=== PATIENT | female | born 1945 | race Caucasian/White ===

== ENCOUNTER 2020-03-04 13:44 | Emergency (ER) | payer MEDICARE, SELFPAY ==
[2020-03-04 14:10] VITALS: BP 120/99; PULSE 83; RESP 18; TEMP 37; O2SAT 99; BMI 28.9
--- NOTE | 2020-03-04 14:17 | XR_ITS ---
EXAMINATION: XR CHEST CLINICAL INFORMATION: Cough COMPARISON: None TECHNIQUE: Frontal view of the chest was obtained. FINDINGS: The patient is rotated to the left. The cardiac and mediastinal contours are normal. The lungs are clear. There is no pleural effusion or pneumothorax. There are degenerative changes of the spine and at the right shoulder joint. XR/XR chest 1V IMPRESSION: No evidence for acute disease in the chest.
--- NOTE | 2020-03-04 14:18 | XR_ITS ---
EXAMINATION: XR WRIST, RIGHT CLINICAL INFORMATION: History of fracture. Not wearing a brace. COMPARISON: None TECHNIQUE: Four views of the right wrist. FINDINGS: The bones are osteopenic. No fracture or dislocation is seen. There is arthritis at the first HALFWAY joint and trapezoid trapezium scaphoid joint. Soft tissues are unremarkable. XR/XR wrist RT min 3V IMPRESSION: Severe osteopenia. Degenerative changes. No fracture seen.
--- NOTE | 2020-03-04 14:38 | ED_ITS ---
HPI - General Adult General Chief complaint: Failure to Thrive Stated complaint: BACK PAIN Time Seen by Provider: 03/04/20 14:15 Source: patient, EMS and old records reviewed Mode of arrival: EMS Limitations: no limitations History of Present Illness HPI narrative: 74 y/o female with history of DM, COPD, CKD, HTN, neck mass, spinal stenosis, right wrist fracture and right proximal humerus fracture s/p fall in July 2019 who presents via EMS from a hotel with concerns of her safety as well as for assessment of her acute on chronic back pain. She was a resident of [facility] from August 21-Feb 23 and then discharged to a hotel. EMS reports she spent one night in the hotel and then went to her condemned home which has no heat and no hot water. She was found today at [facility] and brought into the ER for evaluation. She reported that she has been staying with a friend at night and going to her condemned house only during the daytime. She reports she has been eating and drinking normally. She denies recent falls. Her back pain is acute on chronic due to her spinal stenosis and causes spasms when she walks only. No pain at rest, no radiation, no numbness, no tingling, no incontinence. She denies fever, chill, N/V/D, abd pain, urinary symptoms. Admits to mild dry cough. complaint: back pain Onset (ago): week(s) (1 week it started worsening ) Location: back Radiation: non-radiation Severity: moderate Severity scale (1-10): 6 Quality: aching Pain Consistency: intermittent Relieving factors: immobilization and rest Exacerbating factors: movement Associated symptoms: denies other symptoms Treatments prior to arrival: none Related Data Home Medications Medication Instructions Recorded Confirmed hydrocortisone See Rx Instructions .ROUTE .COMPLEX 03/04/20 03/04/20 metoprolol succinate [Toprol XL] 25 tab PO DAILY 03/04/20 03/04/20 senna See Rx Instructions .ROUTE .COMPLEX 03/04/20 03/04/20 Allergies Allergy/AdvReac Type Severity Reaction Status Date / Time codeine [CODEINE] Allergy Severe HIVES, Unverified 12/12/19 18:28 SWELLING epinephrine [EPINEPHRINE] Allergy Unknown PALPITATION Unverified 12/12/19 18:28 S Review of Systems Review of Systems: Constitutional: No Fever, No Chills ENT/Mouth: No sore throat, No Rhinorrhea, No Swallowing Difficulty Eyes: No Eye Pain, No Swelling, No Redness Cardiovascular: No Chest Pain, No SOB, No Orthopnea, + Edema Respiratory: + Cough, No Sputum, No Wheezing, No dyspnea Gastrointestinal: No Nausea, No Vomiting, No Diarrhea, No abdominal Pain Genitourinary: No Dysuria, No Urinary Frequency, No Hematuria Musculoskeletal: + joint pain, No Myalgias Skin: No Skin Lesions, + rash Neuro: No Weakness, No Numbness, No Dizziness, No Headache Psych: No Anxiety/Panic, No Depression Heme/Lymph: No Bruising, No Lymphadenopathy Endocrine: No Polyuria, No Polydipsia PMFSH Past Medical History Attestation statement: The following information was validated with the patient. Medical History CKD (chronic kidney disease) COPD (chronic obstructive pulmonary disease) Diabetes Fall HTN (hypertension) Spinal stenosis Wrist fracture Social History Social History Smoked in Last 30 Days: No Advance Directives: No Advance Directives Information Provided: Yes Physical Exam Vital Signs: Vital Signs: Last Vital Signs Temp 98.6 F 03/04/20 14:10 Pulse 76 03/04/20 15:26 Resp 11 L 03/04/20 15:26 BP 162/61 H 03/04/20 15:26 Pulse Ox 100 03/04/20 15:26 Body Mass Index 28.9 Appearance: Alert. Oriented X3. No acute distress. Elderly female, mildly kyphotic Eyes: Pupils equal, round and reactive to light. ENT: Pharynx normal. Neck: Neck with large left anterior mobile mass, non-tender, no skin changes. no LAD, Neck supple. CVS: Normal heart rate and rhythm. Pulses normal. Respiratory: No respiratory distress. Breath sounds normal. Abdomen: Soft and nontender. +BS x4 Skin: Skin warm and dry. beefy red rash in bilateral inguinal fold and under bilateral breasts Extremities: + LE edema involving the feet, right wrist tender with mild contracture of hand, tender right upper arm Neuro: Oriented X 3. Non-focal Course Course Course Narrative: 74 y/o female found in unsafe living conditions. Vitals are normal on arrival. Reporting acute/chonic back pain and spasm without known injury. Basic lab workup ordered as well as CXR for dry cough and XR wrist and shoulder - she reports wrist fx in July and she is supposed to be wearing a splint but has not been. Case management is involved - contacted [facility] and [facility] [employer] [facility]. Attempted to contact patient's sister but there was no answer. Will get PT consult once medically cleared. Anticipate STR placement. Neck mass on exam addressed with patient - she states it has been present Reevaluation(s) Reevaluation #1: Records from July admission to [facility] reviewed - she was admitted with multiple traumatic fractures after a fall outside her home and being down for >12 hours. Course was complicated by Takotsubo cardiomyopathy. She had cardiac catheterization that showed mild luminal irregularieis with no non-obstructive or obstructive CAD. Time: 16:52 Reevaluation #2: Lab workup shows CK 655 - tolerating PO and oral liquids are encouraged, tolerating well. No need for IVF at this time. Mild transaminitis with normal bili and alk phos, no abd pain, N/V. XR of wrist and shoulder only showed chronic findings and old trauma. PT has been consulted but was unable to evaluate the patient today. Will plan to continue care in the ER tonight, PT eval and likely placement to STR tomorrow. Will repeat CPK after adequate PO intake to reassess need for IVF. Medical Decision Making Lab Data Result diagrams: 03/04/20 14:59 03/04/20 14:59 Labs: Lab Results 03/04/20 03/04/20 03/04/20 Range/Units 14:54 14:59 14:59 WBC 8.3 (4.8-10.8) X10*3/uL RBC 3.88 L (4.20-5.50) X10*6/uL Hgb 12.2 (12.0-16.0) g/dl Hct 35.4 L (37-47) % MCV 91.2 (80-98) fL MCH 31.4 (27.0-33.0) pg MCHC 34.5 (31.0-35.0) g/dl RDW 13.2 (11.0-16.0) % Plt Count 296 (160-400) X10*3/uL MPV 8.4 L (9.4-12.3) fL Immature Gran % (Auto) 0.2 (0.0-0.4) % Neut % (Auto) 79.9 H (45-73) % Lymph % (Auto) 13.3 L (20-40) % Mchenry % (Auto) 5.6 (2-11) % Eos % (Auto) 0.6 (0-4) % Baso % (Auto) 0.4 (0-2) % Lymph # (Auto) 1.1 L (1.2-4.9) X10*3/uL Mchenry # (Auto) 0.5 (0.1-1.2) X10*3/uL Eos # (Auto) 0.1 (0.0-0.4) X10*3/uL Baso # (Auto) 0.0 (0.0-0.2) X10*3/uL Abs Immat Gran (auto) 0.02 (0.00-0.03) X10*3/uL Absolute Neuts (auto) 6.6 (2.0-8.3) X10*3/uL Absolute Nucleated RBC 0.000 (0.0-0.012) X10*3/uL Nucleated RBC % (auto) 0.0 (0.0-0.2) /100WBC Sodium 137 (135-145) mmol/L Potassium 3.4 (3.3-5.1) mmol/l Chloride 97 (96-108) mmol/L Carbon Dioxide 29 (22-29) mmol/L Anion Gap 14 (12-20) BUN 9 (9-16) mg/dL Creatinine 0.67 (0.5-1.4) mg/dL Estim Creat Clear Calc 71.0 Estimated GFR > 60 Random Glucose 98 (60-115) mg/dL Calcium 8.8 (8.4-10.2) mg/dL Magnesium 1.9 (1.6-2.6) mg/dL Total Bilirubin 0.5 (0.0-1.0) mg/dL Direct Bilirubin 0.3 (0.0-0.5) mg/dL AST 45 H (5-31) U/L ALT 35 H (0-31) U/L Alkaline Phosphatase 90 (39-117) U/L Total Creatine Kinase 655 H (26-140) U/L B-Natriuretic Peptide (<100) pg/mL Total Protein 6.8 (6.5-8.0) g/dL Albumin 4.0 (3.5-5.0) g/dL Urine Color Urine Appearance Urine pH (5.0-8.0) Ur Specific Thornton (1.005-1.025) Urine Protein (NEG-TRACE) MG/DL Urine Glucose (UA) (NEG) MG/DL Urine Ketones (NEG) MG/DL Urine Blood (NEG) Urine Nitrite (NEG) Ur Leukocyte Esterase (NEG) Urine RBC (0) /HPF Urine WBC (0-4) /HPF Ur Squamous Epith Cells /LPF Urine Bacteria /LPF COVID-19 (ELBA) Negative (Negative) COVID-19 Clin Com See Note 03/04/20 03/04/20 Range/Units 14:59 15:47 WBC (4.8-10.8) X10*3/uL RBC (4.20-5.50) X10*6/uL Hgb (12.0-16.0) g/dl Hct (37-47) % MCV (80-98) fL MCH (27.0-33.0) pg MCHC (31.0-35.0) g/dl RDW (11.0-16.0) % Plt Count (160-400) X10*3/uL MPV (9.4-12.3) fL Immature Gran % (Auto) (0.0-0.4) % Neut % (Auto) (45-73) % Lymph % (Auto) (20-40) % Mchenry % (Auto) (2-11) % Eos % (Auto) (0-4) % Baso % (Auto) (0-2) % Lymph # (Auto) (1.2-4.9) X10*3/uL Mchenry # (Auto) (0.1-1.2) X10*3/uL Eos # (Auto) (0.0-0.4) X10*3/uL Baso # (Auto) (0.0-0.2) X10*3/uL Abs Immat Gran (auto) (0.00-0.03) X10*3/uL Absolute Neuts (auto) (2.0-8.3) X10*3/uL Absolute Nucleated RBC (0.0-0.012) X10*3/uL Nucleated RBC % (auto) (0.0-0.2) /100WBC Sodium (135-145) mmol/L Potassium (3.3-5.1) mmol/l Chloride (96-108) mmol/L Carbon Dioxide (22-29) mmol/L Anion Gap (12-20) BUN (9-16) mg/dL Creatinine (0.5-1.4) mg/dL Estim Creat Clear Calc Estimated GFR Random Glucose (60-115) mg/dL Calcium (8.4-10.2) mg/dL Magnesium (1.6-2.6) mg/dL Total Bilirubin (0.0-1.0) mg/dL Direct Bilirubin (0.0-0.5) mg/dL AST (5-31) U/L ALT (0-31) U/L Alkaline Phosphatase (39-117) U/L Total Creatine Kinase (26-140) U/L B-Natriuretic Peptide 197 H (<100) pg/mL Total Protein (6.5-8.0) g/dL Albumin (3.5-5.0) g/dL Urine Color YELLOW Urine Appearance CLEAR Urine pH 5.0 (5.0-8.0) Ur Specific Thornton >= 1.030 H (1.005-1.025) Urine Protein TRACE (NEG-TRACE) MG/DL Urine Glucose (UA) NEG (NEG) MG/DL Urine Ketones 15 (NEG) MG/DL Urine Blood 1+ H (NEG) Urine Nitrite NEG (NEG) Ur Leukocyte Esterase NEG (NEG) Urine RBC 0-2 (0) /HPF Urine WBC 0 (0-4) /HPF Ur Squamous Epith Cells 1+ /LPF Urine Bacteria TRACE /LPF COVID-19 (ELBA) (Negative) COVID-19 Clin Com Discharge Plan Discharge Clinical Impression: Physical deconditioning Back pain Qualifiers: Back pain location: low back pain Chronicity: chronic Back pain laterality: unspecified Sciatica presence: without sciatica Qualified Code(s): M54.5 - Low back pain Prescriptions: No Action hydrocortisone 1 % cream See Rx Instructions .ROUTE .COMPLEX RF: 0 metoprolol succinate [Toprol XL] 25 mg tablet extended release 24 hr 25 tab PO DAILY RF: 0 senna See Rx Instructions .ROUTE .COMPLEX RF: 0
--- NOTE | 2020-03-04 14:40 | XR_ITS ---
EXAMINATION: XR SHOULDER, RIGHT CLINICAL INFORMATION: Pain COMPARISON: None TECHNIQUE: 2 views of the right shoulder. FINDINGS: No acute fracture or dislocation is seen. There is question of old trauma to the right humeral head. There is evidence of severe arthritis at the glenohumeral humeral joint. Glenohumeral alignment is difficult to assess on the limited views. The acromioclavicular joint is unremarkable. Soft tissues are unremarkable. XR/XR shoulder RT min 2V IMPRESSION: Question old trauma to the right humeral head. Severe arthritis. Glenohumeral alignment difficult to assess on the limited views.
[2020-03-04 15:08] LABS: MANUAL DIFF FLAG NO
[2020-03-04 15:10] LABS: Basophils Percent Auto 0.4 % (0-2); Eosinophils Absolute Auto 0.1 X10*3/uL (0.0-0.4); Eosinophils Percent Auto 0.6 % (0-4); Hematocrit 35.4 % (37-47); Hemoglobin 12.2 g/dl (12.0-16.0); Imm Gran Abs Auto 0.02 X10*3/uL (0.00-0.03); Imm Gran Pct Auto 0.2 % (0.0-0.4); Lymphocytes Absolute Auto 1.1 X10*3/uL (1.2-4.9); Lymphocytes Percent Auto 13.3 % (20-40); Mean Corpuscular HGB Conc 34.5 g/dl (31.0-35.0); Mean Corpuscular Hemoglobin 31.4 pg (27.0-33.0); Mean Corpuscular Volume 91.2 fL (80-98); Mean Platelet Volume 8.4 fL (9.4-12.3); Monocytes Absolute Auto 0.5 X10*3/uL (0.1-1.2); Monocytes Percent Auto 5.6 % (2-11); Neutrophils Absolute Auto 6.6 X10*3/uL (2.0-8.3); Neutrophils Percent Auto 79.9 % (45-73); Platelet Count 296 X10*3/uL (160-400); Red Blood Count 3.88 X10*6/uL (4.20-5.50); Red Cell Distribution Width 13.2 % (11.0-16.0); White Blood Count 8.3 X10*3/uL (4.8-10.8)
[2020-03-04 15:13] VITALS: BP 162/61; PULSE 76; RESP 16; O2SAT 100
[2020-03-04 15:23] VITALS: RESP 16
[2020-03-04 15:26] VITALS: BP 162/61; PULSE 76; RESP 11; O2SAT 100
[2020-03-04 15:27] LABS: IDNOW Serial# 9DD0AD1C
[2020-03-04 15:28] LABS: COVID-19 Test Negative (Negative)
[2020-03-04] MEDS: Nystatin Powder 15 GM BOTTLE 1 APPL TOPICAL (15:28)
[2020-03-04] MEDS: Acetaminophen 325 MG TABLET 975 MG PO (15:29)
[2020-03-04 15:38] LABS: Alanine Aminotransferase 35 U/L (0-31); Alkaline Phosphatase 90 U/L (39-117); Anion Gap 14 (12-20); Aspartate Amino Transferase 45 U/L (5-31); Bilirubin Direct 0.3 mg/dL (0.0-0.5); Bilirubin Total 0.5 mg/dL (0.0-1.0); Blood Urea Nitrogen 9 mg/dL (9-16); Calcium 8.8 mg/dL (8.4-10.2); Carbon Dioxide 29 mmol/L (22-29); Chloride 97 mmol/L (96-108); Estimated Glomerular Filt Rate > 60; Glucose Random 98 mg/dL (60-115); Magnesium 1.9 mg/dL (1.6-2.6); Potassium 3.4 mmol/l (3.3-5.1); Sodium 137 mmol/L (135-145); Total Protein 6.8 g/dL (6.5-8.0)
[2020-03-04 15:44] LABS: B Type Natriuretic Peptide 197 pg/mL (<100)
[2020-03-04 15:54] LABS: Glucose Urine UA NEG (NEG); Leukocyte Esterase Urine NEG (NEG); Nitrite Urine NEG (NEG); Specific Gravity - Urine >= 1.030 (1.005-1.025); Urine Blood 1+ (NEG); Urine Ketones 15 MG/DL (NEG); Urine Protein TRACE MG/DL (NEG-TRACE)
[2020-03-04 15:56] LABS: Appearance Urine CLEAR; Color Urine YELLOW
--- NOTE | 2020-03-04 16:03 | PC.NURSE ---
Pt awaiting rehab placement, transferred into hospital bed. Currently resting quietly.
[2020-03-04 16:06] LABS: Bacteria Urine TRACE /LPF; RBC Urine 0-2 /HPF (0); Squamous Epithelial Cell Urine 1+ /LPF; WBC Urine 0 /HPF (0-4)
--- NOTE | 2020-03-04 16:17 | MHC.CM.ED ---
Received case management consult from Marleny MENDOZA. Patient was found by EMS at [facility]. She has been staying at her home in [place]. It is condemned. She was at [facility]. She was discharged to [facility] on 08/21. She was discharged to a motel on 02/23. She spent 1 night there and then returned to her condemned home. She has been staying there. There is no electricity or water. Patient is active with Elder Protective Services. Yolanda Triplett is her manager case management and can be reached at [phone]. She has been working with patient to get her to agree to stay in a motel. ER work up is pending, including a physical therapy eval. Anticipate patient will remain in ER overnight. Continue to monitor for d/c needs.
[2020-03-04 17:48] VITALS: BP 162/61; PULSE 76; RESP 16; TEMP 36.8; O2SAT 100
[2020-03-04 19:32] VITALS: BP 129/46; PULSE 82; RESP 16; O2SAT 97
--- NOTE | 2020-03-04 19:43 | PC.NURSE ---
Report taken from isael De Leon RN resuming care. Pt found sitting upright in bed, CAOx4, speaking full sentences, reporting 9/10 chronic pain to right shoulder. VSS. Pt aware of plan for labs @ 2100 and pending bed search for a rehab. Call rodriguez within reach, continue to monitor.
[2020-03-04] MEDS: Sennosides 8.6 MG TABLET PO (20:59)
--- NOTE | 2020-03-04 20:59 | PC.NURSE ---
Pt medicated with Senna. thermal technician at bedside for repeat labs. Pt repositioned in bed into POC. Continue to monitor.
[2020-03-05] VITALS (10 sets, daily range): BP systolic 123–163; BP diastolic 44–77; PULSE 70–87; RESP 13–20; TEMP 36.5–37.7; O2SAT 95–98
--- NOTE | 2020-03-05 04:52 | PC.NURSE ---
PT RESTING IN BED SKIN PWD RESPIRATIONS EVEN UNLABORED, AWAITING CASE MANAGEMENT PLACEMENT. AWARE OF PLAN OF CARE.
--- NOTE | 2020-03-05 11:19 | MHC.CM.ED ---
Met with patient. PT recommend SNF with Physical therapy. PT states pt unable to live alone due to safety concerns and inability to care for herself. Pt agreeable to placement. Requested [facility] in [facility], but unfortunately they do not have any beds. 17 referrals placed locally at pt request. Anticipate difficulty with placement due to pt social situation. Pt tells CM she has little to no contact with family. Will continue to monitor for D/C planning
[2020-03-05] MEDS: Metoprolol Succinate ER 25 MG TAB.ER.24H PO (11:56)
--- NOTE | 2020-03-05 11:59 | PC.NURSE ---
Patient alert &oriented, cafeteria monitor nsr 90s, vss, pt medicated per order, will continue to monitor
--- NOTE | 2020-03-05 13:54 | MHC.CM.ED ---
Waiting for SNF. 17 referrals placed. 13 declined. Did reach out again to remaining to see if they can offer a bed. Pt aware. Will continue to follow for d/c needs
--- NOTE | 2020-03-05 14:42 | MHC.CM.ED ---
Initial 17 referrals cannot offer bed or insurance not accepted. Additional 18 referrals placed within 40 mile radius
[2020-03-05] MEDS: Ibuprofen 600 MG TABLET PO (16:55)
--- NOTE | 2020-03-05 16:57 | PC.NURSE ---
patient medicated for pain per order
--- NOTE | 2020-03-05 19:00 | PC.NURSE ---
Pt resting in hospital bed requesting her senna. pt alert, respiraitons easy, n/l, skin w/d. Pt awaiting for case mgt in am.
--- NOTE | 2020-03-05 19:11 | PC.NURSE ---
PATIENT WAS GIVEN A BED BATH BY THIS PCT .
[2020-03-05] MEDS: Sennosides 8.6 MG TABLET PO (20:52)
--- NOTE | 2020-03-05 20:55 | PC.NURSE ---
PT MEDICATED PER EMAR. PT RESTING IN BED SPEAKING POLITICS WITH STAFF. PT DENIES ANY COMPLAINTS AT THIS TIME. WILL CONTINUE TO MONITOR PT.
--- NOTE | 2020-03-05 23:15 | PC.NURSE ---
REPORT TAKEN FROM YEVGENIY HOWARD, FIRST CONTACT WITH PT SITTING UP IN BED SKIN PWD RESPIRATIONS EVEN UNLABORED, VSS. PLEASANTLY CONVERSING WITH RN, AWAITING CASE MANAGEMENT PLACEMENT IN AM AWARE OF PLAN OF CARE.
[2020-03-06 02:00] VITALS: RESP 16
--- NOTE | 2020-03-06 02:26 | PC.NURSE ---
PT CALLED FOR BEDPAN, URINATED WITHOUT DIFFICULTY. PO FLUIDS GIVEN AND PT REPOSITIONED FOR COMFORT. WILL CONTINUE TO MONITOR.
[2020-03-06 04:00] VITALS: PULSE 78; RESP 16; O2SAT 98
--- NOTE | 2020-03-06 08:41 | MHC.CM.ED ---
Awaiting auth and bed availability from [facility] in [place]. Contacted Roxi Escobar via [email or web address] regarding pt social situation and broadcasting 30 referrals without bed acceptance. ? due to insurance and social issues. ? if elder emergency waiver is appropriate to help with placement. Will continue to follow for d/c needs
[2020-03-06 08:59] VITALS: BP 156/56; PULSE 83
[2020-03-06] MEDS: Metoprolol Succinate ER 25 MG TAB.ER.24H PO (08:59)
[2020-03-06 09:01] VITALS: BP 156/56; PULSE 83; RESP 18; O2SAT 97
--- NOTE | 2020-03-06 09:55 | MHC.CM.ED ---
[facility]- no bed and insurance is OON. 30 no referrals. Awaiting Roxi Escobar assistance. Will follow for d/c plans
--- NOTE | 2020-03-06 10:15 | MHC.CM.ED ---
40 referrals within 40 miles responded either no bed or insurance OON. Another 47 referrals sent within 100 [address] in state sent. Will monitor for d/c plans
[2020-03-06] MEDS: Ibuprofen 600 MG TABLET PO ×2 (11:07→19:08)
[2020-03-06] MEDS: Acetaminophen 325 MG TABLET 975 MG PO (11:07)
--- NOTE | 2020-03-06 13:28 | MHC.CM.ED ---
[facility] has expressed interest in pt and has requested PSI form (fax- [phone]). Email sent to Roxi Escobar regarding this request. 82 referrals were placed and at this point, only [facility] has shown any interest. Will continue to follow for d/c needs
--- NOTE | 2020-03-06 15:29 | MHC.CM.ED ---
Pt agreeable to meeting with Roxi Escobar regarding frail elder waiver to obtain [facility] so she has the ability to go to a SNF. Roxi Escobar aware. [facility] interested and requested PSI form, made out to [facility]. fAX- [phone]. Roxi made aware by email. Will monitor for d/c needs
--- NOTE | 2020-03-06 16:37 | MHC.CM.ED ---
Roxi Escobar met with pt and is completing frail elder waiver. Pt signed. Roxi will send PSI. Will monitor for d/c needs. Received notice from [facility] that pt left AMA.
[2020-03-06 21:16] VITALS: BP 177/66; PULSE 77; RESP 14; TEMP 36.9; O2SAT 97
[2020-03-06 22:00] VITALS: BP 168/70; PULSE 71; RESP 14; TEMP 36.7; O2SAT 97
[2020-03-06] MEDS: Sennosides 8.6 MG TABLET PO (22:46)
[2020-03-07] MEDS: Ibuprofen 400 MG TABLET PO (04:33)
[2020-03-07 04:34] VITALS: BP 158/66; PULSE 77; RESP 12; O2SAT 98
[2020-03-07 06:00] VITALS: BP 127/77; PULSE 79; RESP 16; O2SAT 98
[2020-03-07 08:38] VITALS: BP 162/78; PULSE 94
[2020-03-07] MEDS: Metoprolol Succinate ER 25 MG TAB.ER.24H PO (08:38)
[2020-03-07 14:46] VITALS: BP 148/53; PULSE 98; RESP 18
--- NOTE | 2020-03-07 14:46 | PC.NURSE ---
patient help to commode, had large BM. This nurse spoke with case management, seems as though placement will not happen until Monday due to an elderly waiver which needs to be completed. patient in no apparent distress, calm. vitals updated.
[2020-03-07] MEDS: Acetaminophen 325 MG TABLET 650 MG PO (15:21)
[2020-03-07 16:43] VITALS: BP 140/52; PULSE 82; RESP 16
[2020-03-07 18:54] VITALS: BP 150/65; PULSE 89; RESP 16; O2SAT 97
[2020-03-07] MEDS: Sennosides 8.6 MG TABLET PO (22:13)
[2020-03-08] VITALS (10 sets, daily range): BP systolic 122–143; BP diastolic 51–66; PULSE 77–97; RESP 15–20; TEMP 36.4–37.1; O2SAT 96–98
[2020-03-08] MEDS: Ibuprofen 400 MG TABLET PO ×2 (05:01→10:34)
[2020-03-08] MEDS: Metoprolol Succinate ER 25 MG TAB.ER.24H PO (09:07)
--- NOTE | 2020-03-08 10:46 | PC.NURSE ---
Pt was encouraged to get oob to recliner at bedside. She declined getting up at this time. This RN encouraged pt to try and get up for lunch. Recliner remains at bedside will reattempt. Dr Rosas informed regarding pt's c/o right shoulder and right elbow pain. Orders provided, and pt medicated per emar.
--- NOTE | 2020-03-08 11:54 | PC.NURSE ---
Pt has voided multiple times on the bedpan. She continues to decline getting oob for her adls. Will re-approach prior to lunch.
[2020-03-08] MEDS: traMADoL HCL 50 MG TABLET 25 MG PO (13:15)
--- NOTE | 2020-03-08 15:00 | PC.NURSE ---
Pt oob for lunch, and remained up for 2 hrs. She is currently back in bed. Continues to await snf placement.
[2020-03-08] MEDS: Sennosides 8.6 MG TABLET PO (23:46)
[2020-03-08] MEDS: traMADoL HCL 50 MG TABLET PO (23:46)
--- NOTE | 2020-03-08 23:57 | PC.NURSE ---
LINENS CHANGED. REPOSITIONED IN BED. CONTINUES TO OBSESS OVER LABS THAT SHE HAD DRAWN AND WHY BLOOD WAS REMOVED FROM HER.
[2020-03-09 10:02] VITALS: BP 173/71; PULSE 80
[2020-03-09] MEDS: Metoprolol Succinate ER 25 MG TAB.ER.24H PO (10:02)
[2020-03-09] MEDS: traMADoL HCL 50 MG TABLET 25 MG PO (10:25)
[2020-03-09 11:27] VITALS: BP 146/62; PULSE 78; RESP 18; TEMP 36.7; O2SAT 97
--- NOTE | 2020-03-09 11:28 | PC.NURSE ---
patient a&ox3, oob to commode with assist then to chair, vss, pt awaiting placement, will continue to monitor.
--- NOTE | 2020-03-09 15:04 | MHC.CM.ED ---
Pt continues to board in ED pending Frail Elder Waiver. [facility] is following. Yolanda from elder protective services called. Tells CM that pt does own her condemned home, but owes back taxes.
[2020-03-09] MEDS: traMADoL HCL 50 MG TABLET PO (18:34)
--- NOTE | 2020-03-09 19:47 | PC.NURSE ---
PT UP TO COMMODE WITH ASSISTENCE. PT'S BED CHG WITH CLEAN LINENS APPLIED TO BED. PT RETURNED TO BED GIVEN MIGUELINA RODRICK TO DRINK. PT DENIES ANY COMPLAINTS AT THIS TIME. WILL CONTINUE TO MONITOR PT.
--- NOTE | 2020-03-09 22:51 | PC.NURSE ---
PT RESTING IN STRETCHER MANAGER EDUCATION PATEL OFTEN TO PULL UP BLANKETS, MOVE AROUND THE TABLE OR ASSIST PT TO COMMODE. WILL CONTINUE TO MONITOR PT.
[2020-03-10 00:15] VITALS: BP 158/73; PULSE 79; RESP 18; TEMP 37; O2SAT 97
[2020-03-10] MEDS: Acetaminophen 325 MG TABLET 650 MG PO ×2 (00:28→22:26)
--- NOTE | 2020-03-10 02:29 | PC.NURSE ---
PATIENT USED BEDPAN. SAT UP AND NEEDED MIGUELINA RODRICK HANDED TO HER IN ORDER TO TAKE A SIP. REPOSITIONED TO LEFT SIDE PER PATIENT REQUEST FOR COMFORT.
[2020-03-10] MEDS: traMADoL HCL 50 MG TABLET PO (04:21)
--- NOTE | 2020-03-10 04:25 | PC.NURSE ---
MEDICATED CHARTED FOR SHOULDER AND HIP JOINT PAIN. PATIENT REPOSITIONED TO RIGHT SIDE REQUESTED BY PATIENT.
[2020-03-10 06:11] VITALS: BP 140/60; PULSE 69; RESP 16; TEMP 36.6; O2SAT 96
--- NOTE | 2020-03-10 07:29 | PC.NURSE ---
Report received. PT met with pleasant disposition. PT complained of shoulder pain due to psoriatic arthritis. Breathing was even and unlabored. PT in no apparent distress. PT was transferred oob into recliner with stand and pivot x1 assist. PT given Ensure to drink while waiting for breakfast.
[2020-03-10 08:30] VITALS: BP 129/48; PULSE 102; RESP 16; TEMP 36.6; O2SAT 97
[2020-03-10 08:47] VITALS: BP 129/48; PULSE 102
[2020-03-10] MEDS: Metoprolol Succinate ER 25 MG TAB.ER.24H PO (08:47)
--- NOTE | 2020-03-10 09:08 | MHC.CM.ED ---
Nadeem text and e-mail sent to Roxi Escobar inquiring about Frail Elder Waiver. Pt remains boarding in our ED awaiting SNF placement. This is day 8. [facility] following
--- NOTE | 2020-03-10 09:35 | PC.NURSE ---
PT rang call rodriguez for assistance with getting on the commode. PT transferred from recliner to commode x1 assist. PT urinated and then stated that she wanted lay back in bed and take a nap because she did not sleep well last night. PT transferred to bed x1 assist. PT adjusted for comfort. Call rodriguez at bed side.
--- NOTE | 2020-03-10 10:01 | MHC.CM.ED ---
Per tiger with Roxi Escobar She faxed the application to [employer] and to the usp([facility]). Call was placed by CM to sister and HCP Soni Mcneill [phone] requesting her help with financial documentation. Sister did not answer the telephone and a message was left. Will call again if sister doesn't call back.
--- NOTE | 2020-03-10 14:17 | MHC.CM.ED ---
[employer] application uploaoded in [employer] and sent to [facility]. They do not have a bed to offer at this time. Received notification from Randy that they are able to offer a bed. Updated clinical sent as requested. Repeat Covid ordered and pending. Continue to monitor for d/c needs.
[2020-03-10 14:44] VITALS: BP 144/62; PULSE 94; RESP 16
[2020-03-10 15:09] LABS: COVID-19 Test Negative (Negative)
--- NOTE | 2020-03-10 16:31 | PC.NURSE ---
pt is currently sitting on the edge of the stretcher watching tv, in no apparent distress at this time. [facility]
[2020-03-10 18:30] VITALS: BP 134/45; PULSE 92; O2SAT 97
--- NOTE | 2020-03-10 18:41 | PC.NURSE ---
pt is currently eating dinner
[2020-03-11 06:37] VITALS: BP 153/60; PULSE 78; RESP 14; TEMP 36.4; O2SAT 96
[2020-03-11 10:30] VITALS: BP 155/63; PULSE 98
[2020-03-11] MEDS: Metoprolol Succinate ER 25 MG TAB.ER.24H PO (10:30)
[2020-03-11 10:44] VITALS: BP 155/67; PULSE 98; RESP 20; O2SAT 98
--- NOTE | 2020-03-11 13:17 | PC.NURSE ---
OOB TO COMMODE, VOIDED RETURNED TO RECLINER, EATING LUNCH
--- NOTE | 2020-03-11 15:53 | MHC.CM.ED ---
[facility] is still willing to offer a bed and is attempting to obtain insurance auth. Auth has not been obtained at this time. Continue to monitor for d/c needs.
[2020-03-11 17:06] VITALS: BP 154/75; PULSE 78; RESP 18; TEMP 36.8; O2SAT 98
[2020-03-11] MEDS: traMADoL HCL 50 MG TABLET PO (20:01)
[2020-03-11] MEDS: Sennosides 8.6 MG TABLET PO (20:51)
--- NOTE | 2020-03-11 21:34 | PC.NURSE ---
Pt repositioned frequently in bed. Offered shave but denied. Medicated previously for shoulder pain. Appears in no distress. VSS.
[2020-03-12 04:02] VITALS: RESP 16
[2020-03-12] MEDS: traMADoL HCL 50 MG TABLET PO (04:12)
--- NOTE | 2020-03-12 04:17 | PC.NURSE ---
PATIENT TOILETED, GIVEN A WARM BLANKET, BOOSTED IN BED AND MEDICATED FOR 7/10 PAIN. PATIENT IS ALERT AND ORIENTED, BREATHING IS EVEN AND UNLABORED SKIN IS P,D,W. NO DISTRESS NOTED.
[2020-03-12 09:42] VITALS: BP 178/71; PULSE 81
[2020-03-12] MEDS: Metoprolol Succinate ER 25 MG TAB.ER.24H PO (09:42)
--- NOTE | 2020-03-12 09:42 | MHC.CM.ED ---
Received telephone call from Tiny at [facility] [place]. They still have not heard from [facility]. However, since she has a [employer] keiry pending, they are willing for her to come to their facility, tomorrow Tuesday 03/13. She can leave our facility at 10am. [facility] booked. Med nec with chart. Continue to monitor for d/c needs.
[2020-03-12 09:45] VITALS: BP 172/81; PULSE 81
--- NOTE | 2020-03-12 16:05 | MHC.CM.ED ---
Received notification from Marbella at [facility] that they are now open for admissions and patient has been on their waiting list. Patient requested [facility] when she originally came to the ER. [facility] is in the process of obtaining insurance auth. [facility] transport for tomorrow 03/13 put on hold. Tiny of [facility]. Continue to monitor for d/c needs.
[2020-03-12 16:50] VITALS: BP 128/62; PULSE 80; RESP 20; TEMP 36.8; O2SAT 97
--- NOTE | 2020-03-12 19:26 | PC.NURSE ---
pt up to bedside commode steady gait., pt back to bed and dinner tray has arrived after calling the caf for it.
[2020-03-12] MEDS: Sennosides 8.6 MG TABLET PO (20:40)
--- NOTE | 2020-03-12 20:48 | PC.NURSE ---
pt resting comfortably in a hospital bed. pt calm cooperative alert and oriented. no s/s of distress noted.
--- NOTE | 2020-03-12 23:11 | PC.NURSE ---
REPORT TAKEN FROM LUCIANO HOWARD, FIRST CONTACT WITH PT. SITTING UP IN BED REPORTING BLANKETS ARE TOO HEAVY, REQUESTING PAIN MEDICATION FOR BACK PAIN, AND REPORTING A BM THIS EVENING TO BE MARKED DOWN . ORDER RECEIVED FROM DR. CEDEÑO FOR TRAMADOL PRN. PT AWAITING ADMINISTRATION.
[2020-03-12] MEDS: traMADoL HCL 50 MG TABLET 25 MG PO (23:18)
[2020-03-12 23:19] VITALS: BP 136/53; PULSE 78; RESP 14; O2SAT 98
--- NOTE | 2020-03-13 05:51 | PC.NURSE ---
PT RESTING IN BED, SKIN PWD RESPIRATIONS EVEN UNLABORED. NO CHANGE IN PHYSICAL ASSESSMENT OVERNIGHT. AWAITING TRANSPORT TO [facility] IN [place] IN AM.
[2020-03-13 06:00] VITALS: RESP 16
[2020-03-13 09:27] VITALS: BP 138/70; PULSE 78
[2020-03-13] MEDS: Metoprolol Succinate ER 25 MG TAB.ER.24H PO (09:27)
[2020-03-13] MEDS: traMADoL HCL 50 MG TABLET 25 MG PO (09:28)
--- NOTE | 2020-03-13 10:52 | MHC.CM.ED ---
pt has requested to go to [facility] she has been accepted there and is leaving the [facility] via [facility] at 11 am. the rn and md and pt are aware of this dc plan. cm to cont. to follow.
== END 2020-03-13 11:52 | disposition skilled nursing facility (03) ==
PROVIDERS: Physician Assistant; Physician Assistant Medical; Emergency Provider Emergency Medicine
DX: M54.5 Low back pain (principal); R53.81 Other malaise; Z20.828 Contact with and (suspected) exposure to other viral communicable diseases; E11.22 Type 2 diabetes mellitus with diabetic chronic kidney disease; I12.9 Hypertensive chronic kidney disease with stage 1 through stage 4 chronic kidney disease, or unspecified chronic kidney disease; N18.9 Chronic kidney disease, unspecified; Z72.89 Other problems related to lifestyle; Z59.1 Inadequate housing; R60.0 Localized edema; M25.531 Pain in right wrist; M25.511 Pain in right shoulder; R22.1 Localized swelling, mass and lump, neck; R21 Rash and other nonspecific skin eruption; Z91.81 History of falling
CPT/HCPCS: 36415; 71045; 73030; 73110; 80048; 80076; 81001; 82550; 83735; 83880; 85025; 87635; 97162; 97530; 99285

== ENCOUNTER 2023-09-21 06:57 | Outpatient (REF) | payer MEDICARE, SELFPAY ==
[2023-09-21 06:59] LABS: MANUAL DIFF FLAG NO
[2023-09-21 07:20] LABS: Basophils Percent Auto 0.5 % (0-2); Eosinophils Absolute Auto 0.2 X10*3/uL (0.0-0.4); Eosinophils Percent Auto 4.5 % (0-4); Hematocrit 29.9 % (37.0-47.0); Imm Gran Abs Auto 0.01 X10*3/uL (0.00-0.03); Imm Gran Pct Auto 0.2 % (0.0-0.4); Lymphocytes Absolute Auto 1.2 X10*3/uL (1.2-4.9); Mean Corpuscular HGB Conc 33.4 g/dl (31.0-35.0); Mean Corpuscular Hemoglobin 31.1 pg (27.0-33.0); Mean Corpuscular Volume 92.9 fL (80.0-98.0); Mean Platelet Volume 9.7 fL (9.4-12.3); Monocytes Absolute Auto 0.7 X10*3/uL (0.1-1.2); Monocytes Percent Auto 16.5 % (2-11); Neutrophils Absolute Auto 2.1 x10*3/uL (2.0-8.3); Neutrophils Percent Auto 50.3 % (45-73); Platelet Count 277 X10*3/uL (160-400); Red Blood Count 3.22 X10*6/uL (4.20-5.50); White Blood Count 4.3 X10*3/uL (4.8-10.8)
[2023-09-21 07:41] LABS: Anion Gap 11 (12-20); Blood Urea Nitrogen 25 mg/dL (9-16); Calcium 8.7 mg/dL (8.4-10.2); Carbon Dioxide 26 mmol/L (22-29); Chloride 103 mmol/L (96-108); Estimated Glomerular Filt Rate > 60; Glucose Random 95 mg/dL (60-115); Potassium 4.1 mmol/L (3.3-5.1); Sodium 136 mmol/L (135-145)
== END 2023-09-21 06:58 | disposition home or self-care (01) ==
LOC: HO.MMNH2L 06:57
PROVIDERS: Visit Provider Hospitalist
DX: I21.4 Non-ST elevation (NSTEMI) myocardial infarction (principal)
CPT/HCPCS: 36415; 80048; 85025

== ENCOUNTER 2023-09-25 07:05 | Outpatient (REF) | payer MEDICARE, SELFPAY ==
[2023-09-25 06:16] LABS: MANUAL DIFF FLAG NO
[2023-09-25 07:11] LABS: Basophils Percent Auto 0.7 % (0-2); Eosinophils Absolute Auto 0.2 X10*3/uL (0.0-0.4); Eosinophils Percent Auto 3.6 % (0-4); Hematocrit 30.8 % (37.0-47.0); Hemoglobin 10.2 g/dl (12.0-16.0); Imm Gran Abs Auto 0.01 X10*3/uL (0.00-0.03); Imm Gran Pct Auto 0.2 % (0.0-0.4); Lymphocytes Absolute Auto 1.1 X10*3/uL (1.2-4.9); Lymphocytes Percent Auto 26.3 % (20-40); Mean Corpuscular HGB Conc 33.1 g/dl (31.0-35.0); Mean Corpuscular Hemoglobin 30.5 pg (27.0-33.0); Mean Corpuscular Volume 92.2 fL (80.0-98.0); Mean Platelet Volume 9.9 fL (9.4-12.3); Monocytes Absolute Auto 0.6 X10*3/uL (0.1-1.2); Monocytes Percent Auto 14.6 % (2-11); Neutrophils Absolute Auto 2.3 x10*3/uL (2.0-8.3); Neutrophils Percent Auto 54.6 % (45-73); Platelet Count 255 X10*3/uL (160-400); Red Blood Count 3.34 X10*6/uL (4.20-5.50); Red Cell Distribution Width 14.7 % (11.0-16.0); White Blood Count 4.2 X10*3/uL (4.8-10.8)
[2023-09-25 07:41] LABS: Anion Gap 14 (12-20); Blood Urea Nitrogen 16 mg/dL (9-16); Calcium 9.1 mg/dL (8.4-10.2); Carbon Dioxide 24 mmol/L (22-29); Chloride 105 mmol/L (96-108); Estimated Glomerular Filt Rate > 60; Glucose Random 77 mg/dL (60-115); Potassium 4.5 mmol/L (3.3-5.1); Sodium 138 mmol/L (135-145)
== END 2023-09-25 07:06 | disposition home or self-care (01) ==
LOC: HO.MMNH2L 07:05
PROVIDERS: Visit Provider Hospitalist
DX: I21.4 Non-ST elevation (NSTEMI) myocardial infarction (principal)
CPT/HCPCS: 36415; 80048; 85025